=== PATIENT | male | born 1945 | race Caucasian/White ===

== ENCOUNTER → 2022-01-02 09:31 | Outpatient (CLI) | payer MEDICARE, SELFPAY ==
--- NOTE | ~2022-01-02 | XR_ITS ---
[id number] DATE: 01/02/2022 10:16 INDICATION: Pleural chest pain TECHNIQUE: PA chest. 3 views of right ribs. 3 views of left ribs. COMPARISON: None FINDINGS: Heart size normal. Aortic arch calcification. No hilar or mediastinal enlargement. No pulmonary infiltrate or consolidation, pleural effusion, pulmonary vascular congestion or pneumoth orax. No displaced rib fracture is noted on the left or right. IMPRESSION: No active cardiac pulmonary disease Aortic calcification No displaced rib fracture is detected Reviewed, dictated and finalized at [facility]. Reviewed, dictated and finalized at location A. RMATION RECEPTIONIST
== END ==
PROVIDERS: PCP Internal Medicine; Visit Provider Internal Medicine
DX: R07.81 Pleurodynia (principal); I70.0 Atherosclerosis of aorta
CPT/HCPCS: 71111

== ENCOUNTER 2022-03-17 17:02 | Emergency (ER) | payer MEDICARE, SELFPAY ==
[2022-03-17 17:09] VITALS: BP 155/96; PULSE 54; RESP 16; TEMP 36.6; O2SAT 99
--- NOTE | 2022-03-17 17:52 | ED.GENADULT ---
HPI - General Adult General Chief complaint: Wound/Laceration Stated complaint: Left thumb Source: patient Mode of arrival: ambulatory Limitations: no limitations History of Present Illness HPI narrative: Patient presents for evaluation of injury to left thumb. He indicates he was trimming bushes this morning around 11:00 AM when he sustained a laceration to the left thumb. He was holding a branch and accidentally cut himself in the process. He has noted continued oozing of blood from affected area. Due to duration of time he has noted bleeding, he came here for further evaluation. Fever, chills, nausea, vomiting, loss of range of motion, paresthesias, purulent discharge. He is right-hand dominant. He is not diabetic. He does not smoke. He is not up to date on tetanus. He takes 81mg ASA daily but no other blood thinners. No additional complaints or concerns. Related Data Home Medications Medication Instructions Recorded Confirmed ascorbate calcium (vitamin C) 500 500 mg PO DAILY 06/30/21 03/17/22 mg tablet cholecalciferol (vitamin D3) 25 25 mcg PO DAILY 06/30/21 03/17/22 mcg (1,000 unit) capsule omega-3 acid ethyl esters 1 gram 2 cap PO BID cap 06/30/21 03/17/22 capsule aspirin [Adult Low Dose Aspirin] 81 mg PO DAILY 03/17/22 03/17/22 Allergies Allergy/AdvReac Type Severity Reaction Status Date / Time No Known Allergies Allergy Verified 03/17/22 17:27 Review of Systems Review of Systems: CONSTITUTIONAL: Denies fever, chills, or sweats. EYES: Denies visual changes, redness, or discharge. ENT: Denies rhinorrhea, congestion, sore throat, or otalgia. CARDIOVASCULAR: Denies chest pain, palpitations, or edema. RESPIRATORY: Denies cough or dyspnea. GASTROINTESTINAL: Denies abdominal pain, nausea, vomiting, or diarrhea. GENITOURINARY: Denies dysuria or hematuria. SKIN: Reports laceration to the left thumb. Denies rash or itching. MUSCULOSKELETAL: Denies back pain, joint pain, or myalgia. NEUROLOGIC: Denies headache, numbness, dizziness, or weakness. PSYCHIATRIC: Denies anxiety or depression. [facility] Past Medical History Medical History (Updated 03/17/22 @ 17:53 by Russ Gay, INTERNET DATABASE SPECIALIST, ) Dyslipidemia Elevated TSH GERD (gastroesophageal reflux disease) Hypertension Hypovitaminosis D Surgical History Surgical History No pertinent past surgical history Family History Family History Father Heart disease Social History Social History Smoking status: Never smoker Second hand tobacco smoke exposure: Yes Alcohol intake: current Alcohol use details: 1 beer per month Substance use: never Substance use type: does not use Living arrangements: with family Gender identity (if verbalized by the patient): Male Sexual Orientation (if Verbalized by the Patient): Straight or Heterosexual Spiritual care concerns: No Exam Narrative: GENERAL: Well-appearing, well-nourished, and in no acute distress. HEAD: Normocephalic, atraumatic. EYES: PERRLA and EOMI. ENT: Nares clear, no rhinorrhea or epistaxis. Mucous membranes moist. Oropharynx without tonsillar hypertrophy exudate or other lesions. Bilateral TMs pearly rojo nonbulging NECK: Supple. No adenopathy or masses. No carotid bruits or JVD CHEST: Clear to auscultation. No respiratory distress. No wheezes rales or rhonchi HEART: Regular rate and rhythm. No murmur heard. Normal peripheral pulses. ABDOMEN: Soft, nontender, nondistended, normal active bowel sounds. EXTREMITIES: Normal range of motion. No edema. SKIN: Approximately 3cm jagged laceration through the distal phalanx of the left thumb. There is macerated surrounding tissue with an approximately 2mm puncture wound adjacent to the laceration. There is active sanguinous oozing from the laceration si
[2022-03-17] MEDS: TETANUS/DIPHTHERIA TOXOIDS ADSORB 0.5 ML VIAL (*BKC) IM (17:59)
--- NOTE | 2022-03-17 18:11 | PC.NURSE ---
180- MARKING MACHINE TENDER used surgicell overtop of the wound, and is having pt follow up with dr freeman on saturday am.
== END 2022-03-17 18:04 | disposition home or self-care (01) ==
PROVIDERS: Emergency Provider Nurse Practitioner; PCP Internal Medicine
DX: S61.012A Laceration without foreign body of left thumb without damage to nail, initial encounter (principal); W45.8XXA Other foreign body or object entering through skin, initial encounter; Z23 Encounter for immunization; E78.5 Hyperlipidemia, unspecified; K21.9 Gastro-esophageal reflux disease without esophagitis; I10 Essential (primary) hypertension; E55.9 Vitamin D deficiency, unspecified; Z79.82 Long term (current) use of aspirin
CPT/HCPCS: 12002; 90471; 90714; 99212; G0463

== ENCOUNTER → 2022-04-05 09:10 | Outpatient (REF) | payer MEDICARE, SELFPAY | LOC: ANHLAB 09:10 | PROVIDERS: PCP Internal Medicine; Visit Provider Nurse Practitioner | DX: C44.319 Basal cell carcinoma of skin of other parts of face (principal) | CPT/HCPCS: 88305 ==

== ENCOUNTER → 2022-06-11 07:35 | Outpatient (REF) | payer MEDICARE, SELFPAY | LOC: ANHLAB 07:35 | PROVIDERS: PCP Internal Medicine; Visit Provider Nurse Practitioner | DX: C44.319 Basal cell carcinoma of skin of other parts of face (principal) | CPT/HCPCS: 88305; 88331 ==

== ENCOUNTER 2023-02-13 07:38 | Outpatient (CLI) | payer MEDICARE, SELFPAY ==
[2023-02-13 08:45] LABS: Hematocrit 41.7 % (42.0-52.0); Hemoglobin 14.4 g/dL (14.0-18.0); Mean Corpuscular HGB Conc 34.5 g/dl (32-36); Mean Corpuscular Hemoglobin 30.9 pg (26-34); Mean Corpuscular Volume 89.5 fl (80-100); Mean Platelet Volume 10.1 fl (7.4-10.4); Platelet Count Result 148 k/mm3 (150-375); Red Blood Count 4.66 M/mm3 (4.6-6.20); Red Cell Distribution Width 12.8 % (11.5-14.5); White Blood Count 4.7 K/mm3 (4.5-10.0)
[2023-02-13 08:58] LABS: Hemoglobin A1C 5.2 % (<5.7)
[2023-02-13 09:27] LABS: Free T4 Free Thyroxine 1.23 ng/mL (0.78-2.19)
[2023-02-13 10:52] LABS: Alanine Aminotransferase 36 U/L (6-50); Albumin Level 4.5 g/dL (3.5-5.1); Alkaline Phosphatase 66 U/L (38-126); Anion Gap 5 mmol/L (8-16); Aspartate Amino Transferase 34 U/L (17-59); Bilirubin,Total 0.7 mg/dL (0.2-1.3); Blood Urea Nitrogen 21 mg/dL (9-20); Calcium 9.1 mg/dL (8.4-10.2); Carbon Dioxide 31 mmol/L (22-30); Chloride 106 mmol/L (98-107); Cholesterol 112 mg/dL (0-200); Estimated Glomerular Filt Rate > 60; Glucose 94 mg/dL (65-110); HDL Direct 36 mg/dL; Potassium 4.4 mmol/L (3.4-5.0); Sodium 142 mmol/L (137-145); Triglycerides 126 mg/dL (<150)
[2023-02-13 11:06] LABS: LDL Cholesterol Direct 51 mg/dL
[2023-02-13 11:22] LABS: Prostate Specific Antigen 0.7 ng/mL (< OR = 4.0)
[2023-02-17 00:08] LABS: Vitamin D 1,25 (OH)2 Total 46 pg/mL (18-72); Vitamin D2 1,25 (OH)2 <8 pg/mL; Vitamin D3 1,25 (OH)2 46 pg/mL
== END 2023-02-13 07:39 | disposition home or self-care (01) ==
LOC: ANHLAB 07:40
PROVIDERS: PCP Internal Medicine; Visit Provider Internal Medicine
DX: Z01.818 Encounter for other preprocedural examination (principal); I10 Essential (primary) hypertension; G47.9 Sleep disorder, unspecified; I25.10 Atherosclerotic heart disease of native coronary artery without angina pectoris; R79.89 Other specified abnormal findings of blood chemistry; E78.5 Hyperlipidemia, unspecified; E55.9 Vitamin D deficiency, unspecified; N40.0 Benign prostatic hyperplasia without lower urinary tract symptoms; Z12.5 Encounter for screening for malignant neoplasm of prostate
CPT/HCPCS: 36415; 80053; 80061; 82652; 83036; 84153; 84439; 84443; 85027; G0103

== ENCOUNTER 2023-04-11 10:26 | Outpatient (NON) | payer MEDICARE, SELFPAY | END 2023-04-11 10:27 | disposition home or self-care (01) | LOC: ANHLAB 04-12 10:29 | PROVIDERS: PCP Internal Medicine; Visit Provider Nurse Practitioner | DX: C44.329 Squamous cell carcinoma of skin of other parts of face (principal); D03.62 Melanoma in situ of left upper limb, including shoulder | CPT/HCPCS: 88305; 88342 ==

== ENCOUNTER 2023-04-29 11:14 | Outpatient (NON) | payer MEDICARE, SELFPAY | END 2023-04-29 11:15 | disposition home or self-care (01) | LOC: ANHLAB 11:16 | PROVIDERS: PCP Internal Medicine; Visit Provider Nurse Practitioner | DX: C44.320 Squamous cell carcinoma of skin of unspecified parts of face (principal) | CPT/HCPCS: 88305; 88331 ==

== ENCOUNTER 2023-04-29 11:29 | Outpatient (NON) | payer MEDICARE, SELFPAY | END 2023-04-29 11:30 | disposition home or self-care (01) | LOC: ANHLAB 05-01 11:29 | PROVIDERS: PCP Family Medicine; Visit Provider Nurse Practitioner Family | DX: C43.9 Malignant melanoma of skin, unspecified (principal) | CPT/HCPCS: 88305 ==

== ENCOUNTER 2023-08-06 09:00 | Outpatient (NON) | payer MEDICARE, SELFPAY | END 2023-08-06 09:01 | disposition home or self-care (01) | PROVIDERS: PCP Family Medicine; Visit Provider Nurse Practitioner | DX: C44.41 Basal cell carcinoma of skin of scalp and neck (principal) | CPT/HCPCS: 88305 ==

== ENCOUNTER 2023-08-16 07:12 | Outpatient (CLI) | payer MEDICARE, SELFPAY ==
[2023-08-16 07:43] LABS: Alanine Aminotransferase 32 U/L (6-50); Albumin Level 4.4 g/dL (3.5-5.1); Alkaline Phosphatase 64 U/L (38-126); Anion Gap 7 mmol/L (8-16); Aspartate Amino Transferase 34 U/L (17-59); Bilirubin,Total 0.7 mg/dL (0.2-1.3); Blood Urea Nitrogen 21 mg/dL (9-20); Calcium 9.2 mg/dL (8.4-10.2); Carbon Dioxide 29 mmol/L (22-30); Chloride 105 mmol/L (98-107); Cholesterol 104 mg/dL (0-200); Estimated Glomerular Filt Rate > 60; Glucose 100 mg/dL (65-110); HDL Direct 34 mg/dL; Potassium 3.9 mmol/L (3.4-5.0); Sodium 141 mmol/L (137-145); Triglycerides 122 mg/dL (<150)
[2023-08-16 07:54] LABS: LDL Cholesterol Direct 52 mg/dL
[2023-08-16 08:11] LABS: Vitamin D 25 Hydroxy 84.6 ng/mL
== END 2023-08-16 07:13 | disposition home or self-care (01) ==
PROVIDERS: PCP Family Medicine; Visit Provider Nurse Practitioner
DX: I10 Essential (primary) hypertension (principal); Z79.899 Other long term (current) drug therapy; E78.5 Hyperlipidemia, unspecified; E03.9 Hypothyroidism, unspecified; E55.9 Vitamin D deficiency, unspecified
CPT/HCPCS: 36415; 80053; 80061; 82306; 84443

== ENCOUNTER → 2023-08-30 09:26 | Outpatient (CLI) | payer MEDICARE, SELFPAY ==
--- NOTE | ~2023-08-30 | CT_ITS ---
CT of the Abdomen: Indication: Chronic pain Technique: 2.5 mm axial scans were obtained through the abdomen following intravenous administration of 100 cc of Omnipaque 350. Dose reduction technique was used on this scan by utilizing automated ex posure control and iterative reconstruction technique. The dose-length product (DLP) was 713.30 mGy-c m. Findings: Scans through the lung bases are unremarkable. Small hepatic cysts are present. The spleen, pancreas, gallbladder, adrenals and kidneys are within n ormal limits. There are mild atherosclerotic calcifications of the aorta. No lymphadenopathy. Visualized bowel loops are unremarkable. No ascites.. Impression: No significant abnormalities seen. Reviewed, dictated and finalized at location M. Impression: No significant abnormalities seen.
[2023-08-30 09:41] LABS: Estimated Glomerular Filt Rate > 60
== END ==
PROVIDERS: PCP Family Medicine; Visit Provider Nurse Practitioner Family
DX: R10.11 Right upper quadrant pain (principal)
CPT/HCPCS: 74160; Q9967

== ENCOUNTER 2023-09-09 13:48 | Outpatient (NON) | payer MEDICARE, SELFPAY | END 2023-09-09 13:49 | disposition home or self-care (01) | LOC: ANHLAB 13:49 | PROVIDERS: PCP Family Medicine; Visit Provider Nurse Practitioner | DX: C44.41 Basal cell carcinoma of skin of scalp and neck (principal) | CPT/HCPCS: 88305; 88331 ==

== ENCOUNTER 2023-11-12 11:49 | Outpatient (NON) | payer MEDICARE, SELFPAY | END 2023-11-12 11:50 | disposition home or self-care (01) | LOC: ANHLAB 11-13 11:51 | PROVIDERS: PCP Family Medicine; Visit Provider Nurse Practitioner | DX: C44.41 Basal cell carcinoma of skin of scalp and neck (principal) | CPT/HCPCS: 88305 ==

== ENCOUNTER 2023-12-09 14:18 | Outpatient (NON) | payer MEDICARE, SELFPAY | END 2023-12-09 14:19 | disposition home or self-care (01) | LOC: ANHLAB 14:19 | PROVIDERS: PCP Family Medicine; Visit Provider Nurse Practitioner | DX: C44.41 Basal cell carcinoma of skin of scalp and neck (principal) | CPT/HCPCS: 88305; 88331 ==

== ENCOUNTER 2024-02-20 07:10 | Outpatient (CLI) | payer MEDICARE, SELFPAY ==
[2024-02-20 07:35] LABS: Basophils Percent Auto 0.6 % (0.2-1.2); Eosinophils Absolute Auto 0.3 K/mm3 (0-0.3); Eosinophils Percent Auto 4.7 % (0-4.4); Hematocrit 43.3 % (42.0-52.0); Hemoglobin 15.1 g/dL (14.0-18.0); Immature Granulocyte Absolute 0.01 K/mm3 (0.00-0.031); Immature Granulocyte Percent A 0.2 % (0-0.5); Lymphocytes Absolute Auto 1.64 K/mm3 (0.9-3.2); Lymphocytes Percent Auto 30.9 % (18.3-44.2); Mean Corpuscular HGB Conc 34.9 g/dl (32-36); Mean Corpuscular Hemoglobin 30.8 pg (26-34); Mean Corpuscular Volume 88.4 fl (80-100); Mean Platelet Volume 9.5 fl (7.4-10.4); Monocytes Absolute Auto 0.5 K/mm3 (0.1-0.6); Monocytes Percent Auto 9.8 % (2.6-8.5); Neutrophils Absolute Auto 2.9 K/mm3 (1.3-6.7); Neutrophils Percent Auto 53.8 % (45.5-73.1); Platelet Count Result 149 k/mm3 (150-375); Red Cell Distribution Width 12.9 % (11.5-14.5); White Blood Count 5.3 K/mm3 (4.5-10.0)
[2024-02-20 07:50] LABS: Alanine Aminotransferase 33 U/L (6-50); Albumin Level 4.5 g/dL (3.5-5.1); Alkaline Phosphatase 65 U/L (38-126); Anion Gap 6 mmol/L (4-12); Aspartate Amino Transferase 34 U/L (17-59); Bilirubin,Total 0.8 mg/dL (0.2-1.3); Blood Urea Nitrogen 20 mg/dL (9-20); Calcium 9.6 mg/dL (8.4-10.2); Carbon Dioxide 29 mmol/L (22-30); Chloride 105 mmol/L (98-107); Cholesterol 111 mg/dL (0-200); Estimated Glomerular Filt Rate > 60; Glucose 108 mg/dL (65-110); HDL Direct 34 mg/dL; Potassium 3.9 mmol/L (3.4-5.0); Sodium 140 mmol/L (137-145); Triglycerides 145 mg/dL (<150); Uric Acid 4.3 mg/dL (3.5-8.5)
[2024-02-20 08:01] LABS: LDL Cholesterol Direct 57 mg/dL
[2024-02-20 11:15] LABS: Free T4 Free Thyroxine 1.48 ng/mL (0.78-2.19); Vitamin D 25 Hydroxy 84.7 ng/mL
== END 2024-02-20 07:11 | disposition home or self-care (01) ==
PROVIDERS: PCP Family Medicine; Visit Provider Nurse Practitioner Family
DX: M10.9 Gout, unspecified (principal); Z79.899 Other long term (current) drug therapy; E78.5 Hyperlipidemia, unspecified; I10 Essential (primary) hypertension; I25.10 Atherosclerotic heart disease of native coronary artery without angina pectoris; E03.9 Hypothyroidism, unspecified; E55.9 Vitamin D deficiency, unspecified; Z13.0 Encounter for screening for diseases of the blood and blood-forming organs and certain disorders involving the immune mechanism
CPT/HCPCS: 36415; 80053; 80061; 82306; 84439; 84443; 84550; 85025

== ENCOUNTER 2024-03-11 10:05 | Outpatient (CLI) | payer MEDICARE, SELFPAY ==
[2024-03-11 11:03] LABS: Anion Gap 7 mmol/L (4-12); Blood Urea Nitrogen 20 mg/dL (9-20); Calcium 9.7 mg/dL (8.4-10.2); Carbon Dioxide 26 mmol/L (22-30); Chloride 107 mmol/L (98-107); Estimated Glomerular Filt Rate > 60; Glucose 117 mg/dL (65-110); Potassium 4.1 mmol/L (3.4-5.0); Sodium 140 mmol/L (137-145)
== END 2024-03-11 10:06 | disposition home or self-care (01) ==
PROVIDERS: PCP Family Medicine; Visit Provider Internal Medicine Cardiovascular Disease
DX: I10 Essential (primary) hypertension (principal)
CPT/HCPCS: 36415; 80048

== ENCOUNTER 2024-08-28 07:04 | Outpatient (CLI) | payer MEDICARE, SELFPAY ==
[2024-08-28 07:55] LABS: Hemoglobin 14.7 g/dL (14.0-18.0); Mean Corpuscular Hemoglobin 30.7 pg (26-34); Mean Corpuscular Volume 87.7 fl (80-100); Mean Platelet Volume 9.7 fl (7.4-10.4); Platelet Count Result 148 k/mm3 (150-375); Red Blood Count 4.79 M/mm3 (4.6-6.20); Red Cell Distribution Width 13.1 % (11.5-14.5); White Blood Count 4.6 K/mm3 (4.5-10.0)
[2024-08-28 08:07] LABS: Alanine Aminotransferase 32 U/L (6-50); Albumin Level 4.5 g/dL (3.5-5.1); Alkaline Phosphatase 59 U/L (38-126); Anion Gap 8 mmol/L (4-12); Aspartate Amino Transferase 36 U/L (17-59); Blood Urea Nitrogen 23 mg/dL (9-20); Calcium 9.4 mg/dL (8.4-10.2); Carbon Dioxide 26 mmol/L (22-30); Chloride 106 mmol/L (98-107); Cholesterol 106 mg/dL (0-200); Estimated Glomerular Filt Rate > 60; Glucose 98 mg/dL (65-110); HDL Direct 33 mg/dL; Potassium 4.1 mmol/L (3.4-5.0); Sodium 140 mmol/L (137-145); Triglycerides 121 mg/dL (<150); Uric Acid 4.7 mg/dL (3.5-8.5)
[2024-08-28 08:18] LABS: LDL Cholesterol Direct 44 mg/dL
== END 2024-08-28 07:05 | disposition home or self-care (01) ==
LOC: ANHLAB 07:07
PROVIDERS: PCP Nurse Practitioner Family; Visit Provider Nurse Practitioner Family
DX: M1A.9XX0 Chronic gout, unspecified, without tophus (tophi) (principal); C44.319 Basal cell carcinoma of skin of other parts of face; E55.9 Vitamin D deficiency, unspecified; E78.5 Hyperlipidemia, unspecified; G47.9 Sleep disorder, unspecified; I10 Essential (primary) hypertension; I25.10 Atherosclerotic heart disease of native coronary artery without angina pectoris; K21.9 Gastro-esophageal reflux disease without esophagitis; R10.11 Right upper quadrant pain; R79.89 Other specified abnormal findings of blood chemistry; E03.9 Hypothyroidism, unspecified
CPT/HCPCS: 36415; 80053; 80061; 84443; 84550; 85027

== ENCOUNTER 2025-03-02 07:11 | Outpatient (CLI) | payer MEDICARE, SELFPAY ==
--- OUTSIDE RECORDS SUMMARY | 2025-03-02 07:15 | XMS_ITS | Continuity of Care Document ---
Author Organization [facility] Address [address] [place] [address] Phone Care Team Providers Care Hide Sorter Name Role Phone Dany Chandler MD Unavailable Unavailable Procedures Procedure Date COLONOSCOPY AND BIOPSY TISSUE EXAM BY PATHOLOGIST Advance Directives Directive Yes / No Effective Date File Name No Information Encounters Encounter Description Practice Location Reason(s) For Visit Diagnoses Date Provider Providers Copied on Encounter [facility] [address], [place], [place], [id number], tel:[phone] [facility] No Information Geraldine Saenz. [address] [place] [address], [id number], . tel:[phone] [facility] [address], [place], [place], [address], tel:[phone] [facility] No Information Geraldine Saenz. [address] [place] [address], [id number], . tel:[phone] Referring Provider: Marty Ash, [address] [facility] [employer] [facility] [address], [address]. tel:[phone] [facility] [address], [place], [place], [id number], tel:[phone] [facility] No Information Joaquin Santiago. [address] [place] [address], [address], [place]. tel:[phone] Referring Provider: Marty Ash, [address] [facility], [place], [address]. tel:[phone] Family History Family Member Type Diagnosis Age At Onset No Information Payers Payer name Insurance type Covered constitution party ID Authorlily crews(s) MEDICARE MB [id number] AARP MDCR SUPPLEMENT ONLY CI [id number] Social History Type Description Quantity Date Captured [...]
--- OUTSIDE RECORDS SUMMARY | 2025-03-02 07:15 | XMS_ITS | Data Portability ---
Author Organization [place] [facility] [employer], Main Office Address [address] [place] [address] Assessment Encounter Date Assessment Date Assessment LastModified by Organization Details LastModified Time 10/01/2024 10/01/2024 The patient has impingement due to what appears to be subacromial spurring and AC joint arthrosis resulting in likely partial-thicknes s tearing of the rotator cuff tendon and tendinitis. We talked about treatment options today in detail I have advised him to avoid heavy repetitive overhead type maneuvers and when he walks his dogs he may try to use the opposite hand to avoid sudden jerking motions on his right shoulder. He has had no treatment today we are going to start with a course of physical therapy I offered him formal therapy he declined we will give him home exercise program sheets to work on on his own at home. He did want to proceed with a prescription for naproxen 500 mg b.i.d. with food for 6 weeks we will also try a shot of cortisone. At his request under sterile conditions I injected the patient's right shoulder subacromial space in the office with 4 cc 0.5% bupivacaine and 20 mg of Kenalog. The patient tolerated the procedure well. We will see how he does in 6 weeks if his symptoms are continuing or worsening we may consider an MRI scan to assess the integrity of the rotator cuff tendon. The patient voiced understanding and agreed with the above plan will call for any further problems difficulties or questions. Not available 10/01/2024 11:29:27 11/12/2024 11/12/2024 The patient has likely some fraying and wear in the rotator cuff tendon due to impingement and subacromial spurring. Today after treatment he comes in today for recheck he states he is pain-free he is doing his home exercise program 3 days a week at the gym we talked about continuing that he is going to proceed. If his pain comes back or he starts to develop weakness he will call for now he is very comfortable and pleased with the previous treatment results. He voiced understanding and agreed with the above plan he will continue with naproxen 500 mg b.i.d. with food as necessary if he feels good he can back off of it. He will call for any further problems difficulties or questions. Not available 11/12/2024 11:07:19 Plan of Treatment Reminders Order Date Submit Date Provider Last Modified By Organization Details Last Modified Time Details Appointments None recorded. Lab None recorded. Referral None recorded. Procedures injection/a spiration joint/bursa (PROC) 2023 [email or web address] In-Office Order, Internal Use Only DO Not Attach Compendium DO Not Attach Compendium, Do Not Delete/merge, [id number] 11:12:57 Surgeries None recorded. Imaging XR, shoulder 2023 [email or web address] [facility] [place], [facility], [place], [address], 4 11:30:53 Medication Orders bupivacaine HCl 0.5 % (5 mg/mL) injection solution 2023 [email or web address] [id number], [address] [place], [place], [id number], 4 11:16:50 Kenalog 10 mg/mL suspension for injection 2023 [email or web address] [facility] #[id number], [address] [place], [id number], 4 11:16:50 naproxen 500 mg tablet 2023 [email or web address] [facility] #[id number], [address], [place], [place], [id number], 4 11:16:50 Patient TargetsNo targets recorded. Patient InstructionsNo instructions recorded. Reason for Referral None Reported. Results Created Date Observation Date Name Description Value Unit Range Abnormal Flag Note LastModifiedBy Organization Detail LastModifiedTime 10/01/20 24 XR, shoul indira No observ ation record ed. [email or web address] [facility] [place] [address], [place], [address], 10/01/2024 11:30:51 Result Notes None recorded. 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 Procedures Surgical History None recorded. Imaging Results Imaging Date Name Status LastModified by Organiz ation Details LastModified Time 10/01/2024 XR, shoulder completed [email or web address] [facility] [place] [address], [place], [address], 10/01/2024 11:30:51 Procedure Notes None recorded. Medical Equipment None Reported. Allergies No known drug allergies Medications Name Sig Start Date Stop Date Status Note LastModified by Organization Details LastModified Time quetiapine 25 mg tablet TAKE 1 TABLET BY MOUTH DAILY active Not Available Not Available No t Available levothyroxi ne 137 mcg tablet TAKE 1 TABLET BY MOUTH DAILY active Not Available Not Available No t Available carvedilol 6.25 mg tablet TAKE 1 TABLET BY MOUTH EVERY 12 HOURS . TAKE WITH SNACK / FOOD active Not Available Not Available No t Available carvedilol 12.5 mg tablet TAKE 1 TABLET BY MOUTH EVERY 12 HOURS WITH SNACK OR FOOD active Not Available Not Available No t Available benzonatate 200 mg capsule TAKE 1 CAPSULE BY MOUTH THREE TIMES DAILY NEEDED FOR COUGH 10/01 completed Not Available Not Available Not Available bupivacaine HCl 0.5 % (5 mg/mL) injection solution Take 20 mg by injection route. 2023 active Not Available Not Available Not Avai lable prednisone 20 mg tablet TAKE 2 TABLETS BY MOUTH DAILY WITH FOOD FOR 5 DAYS 10/01 completed Not Available Not Available Not Available omeprazole 40 mg capsule,del ayed release TAKE 1 CAPSULE BY MOUTH DAILY active Not Available Not Available No t Available potassium chloride ER 20 mEq tablet,exte nded release(par t/cryst) TAKE 1 TABLET BY MOUTH TWICE DAILY active Not Available Not Available No t Available Kenalog 10 mg/mL suspension for injection Take 20 mg by injection route. [address] [facility]: [phone]- [phone] Not Available Not Available Not Available amlodipine 10 mg tablet TAKE 1 TABLET BY MOUTH DAILY active Not Available Not Available No t Available cephalexin 500 mg capsule TAKE 1 CAPSULE BY MOUTH THREE TIMES DAILY 10/01 completed Not Available Not Available Not Available allopurinol 300 mg tablet TAKE 1 TABLET BY MOUTH DAILY active Not Available Not Available No t Available losartan 100 mg tablet TAKE 1 TABLET BY MOUTH DAILY active Not Available Not Available No t Available doxycycline hyclate 100 mg tablet TAKE 1 TABLET BY MOUTH TWICE DAILY FOR 10 DAYS 10/01 completed Not Available Not Available Not Available naproxen 500 mg tablet TAKE 1 TABLET BY MOUTH TWICE DAILY active Not Available Not Available No t Available rosuvastati n 20 mg tablet TAKE 1 TABLET BY MOUTH DAILY active Not Available Not Available No t Available omega-3 acid ethyl esters 1 gram capsule TAKE 2 CAPSULES BY MOUTH TWICE DAILY active Not Available Not Available No t Available Vitals Date Recorded Body height Body mass index (BMI) Body weight Provider Name and Address Organization Details Last Updated DateTime 10/01/2024 175.26 cm 31 kg/m2 63593.4 g GAVIN Pressley [employer] 10/01/2024 10:40:06 Date Recorded Body height Body mass index (BMI) Body weight Provider Name and Address Organization Details Last Updated DateTime 11/12/2024 175.26 cm 30.3 kg/m2 75908.44 g GAVIN Pressley [employer] 11/12/2024 10:50:36 Social History Question Answer Notes LastModified by Organizat ion Details LastModified Time Tobacco Smoking Status Never Smoker GAVIN Pressley [place] [facility] 10/01/2024 10:41:20 What Is Your Level Of Alcohol Consumption? None Information not available 10/01/2024 Sex: Unknown Functional Status None recorded. Mental Status None recorded. Family History Relationship Description Onset Age of this Age Resolved Age Notes LastModified by Organization Details LastModified Time Mother Hypertensive disorder Not available 2023 10:41:07 Medical History Condition Response HEART DISEASE/HEART PROBLEMS Y SKIN PROBLEMS Y GOUT Y Past Encounters Encounter ID Performer Location Encounter Start Date Encounter Closed Date Diagnosis/Indication Diagnosis SNOMED-CT Code Diagnosis ICD10 Code Diagnosis Note [id number] PATRICK Allen [facility] [place] [address] [place] [address] 10/01/2024 10:24:43 10/01/2024 11:18:25 Pain of right shoulder joint 1948039806 7125806 M25.511 Osteoarthr itis of right acromioclavicular joint 0116132651 095577 M19.011 Impingemen t syndrome of right shoulder region 9358543091 88203 M75.41 Non-trauma tic partial tear of right rotator cuff 3435565867 849704 M75.440 [id number] PATRICK Allen [facility] [place] [address] [place] [address] 11/12/2024 10:48:11 11/12/2024 11:08:28 Non-traumatic partial tear of right rotator cuff 3031018452 837353 M75.111 Osteoarthr itis of right acromioclavicular joint 4947222258 680345 M19.011 Pain of ri ght shoulder joint 4314513191 6073399 M25.511 Impingemen t syndrome of right shoulder region 9806855107 79621 M75.41 Health Concerns Section Related Observation LastModified by Organization Detai ls LastModified Time None Recorded Concern Status LastModified by Organization Details LastModified Time None Recorded Advance Directives Directive None Recorded Payers Encounter Date Sequence Insurance Name Policy Number Policy Landeros Covered Member ID Landeros Member ID Guarantor Name 10/01/2024 1 [place] Pedrito Martin Godfrey [id number] Pedrito Mario Godfrey 10/01/2024 2 [employer]IONS (MEDICARE SUPPLEMENT) Pedrito Mckeonen [id number] Pedrito Martin Godfrey 11/12/2024 1 [place] Pedrito Martin Godfrey [id number] Pedrito Mario Godfrey 11/12/2024 2 [employer] OPTIONS (MEDICARE SUPPLEMENT) Pedrito Donahue [id number] Pedrito Donahue Notes Date Note Type Note Provider Name and Address Organization Details Recorded Time 10/01/2024 text/html The patient is a 78-year-old male who presents with a chronic history of some shoulder issues with his right shoulder. 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 Over the years he has had some twinges of pain but recently more consistent and more intense pain. Today states the pain is about a 5 on a scale of 1-10. Notices it mostly when he walks his 2 dogs he will put them on a leash and use his right upper extremity to control the dogs which aggravates his right shoulder. He has pain that radiates into the upper arm particularly if he is do anything heavy or repetitive sudden jerking on the leashes from his dogs does aggravate his right shoulder as well. He states he does not notice any weakness in the shoulder but does note he has limited range of motion particularly trying to reach behind his back he does have full overhead motion full external rotation internal rotation is somewhat limited. He has had no specific trauma or injury to the shoulder recently or previously. Occasionally he will take some Aleve [id number] he states he also does some light weightlifting to try to keep in shape and tries to exercise his shoulder. However his symptoms continue despite conservative measures. He comes in today for initial evaluation treatment of what sounds like rotator cuff tendinitis and possibly partial-thickness tearing. A new past medical history sheet was reviewed and signed on the intake sheet of today's date drug allergies current medications family social history previous surgical history 10 point review of systems was reviewed and discussed in detail today with the patient. PATRICK Allen [address], [address], [place], [address], Di[facility]ize 10/01/2024 11:31:57 11/12/2024 text/html Patient returns for recheck of his right shoulder. He was having some tendinitis and possibly has some partial-thickness fraying or tearing of the rotator cuff tendon degenerative in nature. He does have some subacromial spurring and AC joint arthrosis likely resulting in impingement and wear in the tendon. The patient was treated with a shot of cortisone and naproxen 500 mg b.i.d. and he was given a home exercise program. He has been working on that 3 times a week he states doing light weights and maintaining his motion. He comes in today stating that he now has no pain. He does note some clicking through the arc of motion of the shoulder but it really does not bother him. Occasionally he does anything too heavy or extreme with motion he will get some twinges of pain but overall is feeling very good. He comes in today to talk about further treatment options for the future if necessary and for recheck. PATRICK Allen [address], [place], [address], Diarize 11/12/2024 11:07:41
[2025-03-02 08:29] LABS: Hematocrit 42.9 % (42.0-52.0); Hemoglobin 14.2 g/dL (14.0-18.0); Mean Corpuscular HGB Conc 33.1 g/dl (32-36); Mean Corpuscular Hemoglobin 30.1 pg (26-34); Mean Corpuscular Volume 90.9 fl (80-100); Mean Platelet Volume 9.8 fl (7.4-10.4); Platelet Count Result 139 k/mm3 (150-375); Red Blood Count 4.72 M/mm3 (4.6-6.20); Red Cell Distribution Width 13.1 % (11.5-14.5)
[2025-03-02 08:31] LABS: Alanine Aminotransferase 36 U/L (6-50); Albumin Level 4.5 g/dL (3.5-5.1); Alkaline Phosphatase 68 U/L (38-126); Anion Gap 8 mmol/L (4-12); Aspartate Amino Transferase 34 U/L (17-59); Bilirubin,Total 0.9 mg/dL (0.2-1.3); Blood Urea Nitrogen 19 mg/dL (9-20); Calcium 9.4 mg/dL (8.4-10.2); Carbon Dioxide 29 mmol/L (22-30); Chloride 105 mmol/L (98-107); Cholesterol 102 mg/dL (0-200); Estimated Glomerular Filt Rate > 60; Glucose 100 mg/dL (65-110); HDL Direct 35 mg/dL; Sodium 142 mmol/L (137-145); Triglycerides 121 mg/dL (<150)
[2025-03-02 08:42] LABS: LDL Cholesterol Direct 39 mg/dL
[2025-03-02 09:54] LABS: Vitamin D 25 Hydroxy 63.5 ng/mL
== END 2025-03-02 07:12 | disposition home or self-care (01) ==
PROVIDERS: PCP Nurse Practitioner Family; Visit Provider Nurse Practitioner Family
DX: E03.9 Hypothyroidism, unspecified (principal); N40.0 Benign prostatic hyperplasia without lower urinary tract symptoms; M10.9 Gout, unspecified; I25.10 Atherosclerotic heart disease of native coronary artery without angina pectoris; D49.2 Neoplasm of unspecified behavior of bone, soft tissue, and skin; K21.9 Gastro-esophageal reflux disease without esophagitis; I10 Essential (primary) hypertension; E78.5 Hyperlipidemia, unspecified; E55.9 Vitamin D deficiency, unspecified; R07.81 Pleurodynia; Z68.31 Body mass index [BMI] 31.0-31.9, adult; G47.9 Sleep disorder, unspecified
CPT/HCPCS: 36415; 80053; 80061; 82306; 84443; 85027

== ENCOUNTER 2025-08-30 07:23 | Emergency (ER) | payer MEDICARE, SELFPAY ==
--- OUTSIDE RECORDS SUMMARY | 2020-08-31 07:26 | XMS_ITS | Continuity of Care Document ---
Author Organization [facility] Address [address] [place] [address] Phone Care Team Providers Care Tandem Mill Operator Name Role Phone Dany Chandler MD Unavailable Unavailable Procedures Procedure Date COLONOSCOPY AND BIOPSY TISSUE EXAM BY PATHOLOGIST Advance Directives Directive Yes / No Effective Date File Name No Information Encounters Encounter Description Practice Location Reason(s) For Visit Diagnoses Date Provider Providers Copied on Encounter [facility], [address], [place], [place], [id number], tel:[phone] [facility] No Information Geraldine Saenz. [address] [place] [address], [id number], . tel:[phone] [facility], [address], [place], [place], [id number], tel:[phone] [facility] No Information Geraldine Saenz. [address] [place] [address], [id number], . tel:[phone] Referring Provider: Marty Ash, [address] [facility] [employer] [facility] [address], [place], [address]. tel:[phone] [facility], [address], [place], [place], [id number], tel:[phone] [facility] No Information Joaquin Santiago. [address] [place] [address], [address], [place]. tel:[phone] Referring Provider: Marty Ash, [address] [facility], [place], [address]. tel:[phone] Family History Family Member Type Diagnosis Age At Onset No Information Payers Payer name Insurance type Covered republican ID Authorlily crews(s) MEDICARE MB [id number] AARP MDCR SUPPLEMENT ONLY CI [id number] Social History Type Description Quantity Date Captured Comments Sex Male Smoking Status No Information Chief Complaint And Reason For Visit No Information Reason For Referral Reason For Referral No Information History Of Present Illness Encounter Date Complaint History Of Prese nt Illness No Information Functional Status Date Functional Assessmen t No Information Instructions Date Instruction Additional Infor mation No Information Assessments Type Assessment Date No Information Patient Care Teams Name Effective Dates (start - stop) Status Members No Information
[2025-08-30 07:25] VITALS: PULSE 77; RESP 17; TEMP 37.1; O2SAT 99
--- NOTE | 2025-08-30 09:52 | ED.MALEGU ---
HPI - Male Genitourinary General Chief complaint: Urogenital-Male Stated complaint: swelling to groin Time Seen by Provider: 08/30/25 08:09 History of Present Illness HPI Narrative: Patient is a 79-year-old male who presents ER with discomfort to the scrotal area near the perineum. He has developed pain in the area over last 4 days. He has developed swelling of his scrotum and is causing him to develop a buried penis. Has no drainage the area. No pain with defecation. No fevers or chills or sweats. Related Data Home Medications ?Medication ?Instructions ?Recorded ?Confirmed ?Last Taken ?Type ascorbate calcium (vitamin C) 500 500 mg PO DAILY 06/30/21 03/09/25 Unknown History mg tablet cholecalciferol (vitamin D3) 25 25 mcg PO DAILY 06/30/21 03/09/25 Unknown History mcg (1,000 unit) capsule omega-3 acid ethyl esters 1 gram 2 cap PO BID 06/30/21 03/09/25 Unknown History capsule (Lovaza) aspirin 81 mg tablet 81 mg PO DAILY 03/17/22 03/09/25 Unknown History Allergies Allergy/AdvReac Type Severity Reaction Status Date / Time No Known Allergies Allergy Verified 08/30/25 08:16 Review of Systems Constitutional: Constitutional: Reports no additional constitutional complaints Genitourinary: Genitourinary: Reports no additional male genitourinary complaints Musculoskeletal: Musculoskeletal: Reports no additional musculoskeletal complaints Integumentary/Breasts: Skin/Breast: Reports system reviewed and no additional complaints, except as docu [facility] Past Medical History Medical History (Updated 08/30/25 @ 09:55 by Dario Box MD) BMI 31.0-31.9,adult CAD (coronary artery disease) Basal cell carcinoma of left cheek Hypovitaminosis D Elevated TSH Dyslipidemia Hypertension GERD (gastroesophageal reflux disease) Surgical History Surgical History No pertinent past surgical history Family History Family History Father Heart disease Social History Social History Smoking status: Never smoker Second hand tobacco smoke exposure: Yes Alcohol intake: current Alcohol use details: 1 beer per month Substance use: never Substance use type: does not use Lack of Transportation: No Lack of Food: Never True Current Housing: I Have Housing Concerned About Future Housing: No Difficulty Paying Gas/Electric Bills: No Difficulty Paying for Meds: No Currently Unemployed: No Education: Associate Degree Difficulty w/ Childcare or Family Care: No Living arrangements: with family Gender identity (if verbalized by the patient): Male Sexual Orientation (if Verbalized by the Patient): Straight or Heterosexual Spiritual care concerns: No Exam Narrative: GENERAL: Well-appearing, well-nourished, and in no acute distress. HEAD: Normocephalic, atraumatic. ENT: Mucous membranes moist. : There is an abscess at the base of the scrotum home nearly at the perineum with induration moving towards the main aspect of the scrotum. Moderate edema of the scrotal sac. EXTREMITIES: Normal range of motion. No edema. SKIN: Warm, dry, no rash. NEURO: No focal deficits. Alert and oriented x3. PSYCH: Normal mood and affect. Course Course Emergency Course: Discussed case with Urology. They will follow up in clinic. Will start on doxycycline. Discussed need for removal packing in 2 days. Vital Signs Vital signs: Vital Signs Temperature 98.7 F 08/30/25 07:25 Pulse Rate 77 08/30/25 07:25 Respiratory Rate 17 08/30/25 07:25 Pulse Oximetry 99 08/30/25 07:25 Oxygen Delivery Room Air 08/30/25 07:25 Temperature 98.7 F 08/30/25 07:25 Pulse Rate 77 08/30/25 07:25 Respiratory Rate 17 08/30/25 07:25 Pulse Oximetry 99 08/30/25 07:25 Oxygen Delivery Room Air 08/30/25 07:25 Procedures Abscess I/D scrotum: Date of Incision: 08/30/25 Time of Incision: 09:50 Local Anesthetic: lidocaine 1% and with epi Amount of anesthesia used (mL): 5 Technique: incised with #11 blade Packing used?: iodoform I&D Results: Pus Discharge Plan Discharge Clinical Impression: Abscess of scrotum Patient Disposition: Home Condition: Stable Instructions: Antibiotic Form, Incision and Drainage (ED) Additional Instructions: You have an abscess on your scrotum that required drainage and packing. Remove the packing in 2 days. Follow-up with Urology. Take the full course of antibiotics as prescribed. Patient Language: Martiniquais Prescriptions: New doxycycline hyclate 100 mg capsule 100 mg PO BID Qty: 20 0RF No Action Adult Low Dose Aspirin 81 mg Tablet 81 mg PO DAILY rosuvastatin 20 mg tablet 20 mg PO DAILY Qty: 90 0RF carvedilol 12.5 mg tablet 12.5 mg PO Q12H Qty: 90 0RF Rx Instructions: must administer with a meal/food amlodipine 10 mg tablet 10 mg PO DAILY Qty: 90 0RF potassium chloride 20 mEq tablet extended release 20 meq PO DAILY Qty: 90 0RF multivitamin [Daily Multi-Vitamin] Tablet 1 tablet PO DAILY Qty: 90 0RF diclofenac sodium [Voltaren Arthritis Pain] 1 % gel 4 g topical QID Qty: 100 0RF ascorbate calcium (vitamin C) 500 mg tablet 500 mg PO DAILY cholecalciferol (vitamin D3) 25 mcg (1,000 unit) capsule 25 mcg PO DAILY omega-3 acid ethyl esters [Lovaza] 1 gram capsule 2 cap PO BID omeprazole 40 mg capsule,delayed release(DR/EC) See Rx Instructions .ROUTE .COMPLEX Qty: 90 1RF Dose Instruction: TAKE 1 CAPSULE BY MOUTH DAILY Rx Instructions: TAKE 1 CAPSULE BY MOUTH DAILY allopurinol 300 mg tablet See Rx Instructions .ROUTE .COMPLEX Qty: 90 0RF Dose Instruction: TAKE 1 TABLET BY MOUTH DAILY Rx Instructions: TAKE 1 TABLET BY MOUTH DAILY quetiapine 25 mg tablet See Rx Instructions .ROUTE .COMPLEX Qty: 90 0RF Dose Instruction: TAKE 1 TABLET BY MOUTH DAILY Rx Instructions: TAKE 1 TABLET BY MOUTH DAILY levothyroxine 137 mcg tablet See Rx Instructions .ROUTE .COMPLEX Qty: 90 1RF Dose Instruction: TAKE 1 TABLET BY MOUTH DAILY Rx Instructions: TAKE 1 TABLET BY MOUTH DAILY losartan 100 mg tablet See Rx Instructions .ROUTE .COMPLEX Qty: 90 1RF Dose Instruction: TAKE 1 TABLET BY MOUTH DAILY Rx Instructions: TAKE 1 TABLET BY MOUTH DAILY Follow-up/Referrals: Raeann Mcgill APRN [Primary Care Provider, Internal Medicine] Cortes Alexandra MD [Physician, Urology] - 3 Days
== END 2025-08-30 10:57 | disposition home or self-care (01) ==
PROVIDERS: Emergency Provider Emergency Medicine; PCP Nurse Practitioner Family
DX: N49.2 Inflammatory disorders of scrotum (principal); I25.10 Atherosclerotic heart disease of native coronary artery without angina pectoris; I10 Essential (primary) hypertension; E78.5 Hyperlipidemia, unspecified; K21.9 Gastro-esophageal reflux disease without esophagitis; Z85.828 Personal history of other malignant neoplasm of skin; Z77.22 Contact with and (suspected) exposure to environmental tobacco smoke (acute) (chronic); Z79.899 Other long term (current) drug therapy
CPT/HCPCS: 10061; 55100; 99283

== ENCOUNTER 2025-09-08 07:12 | Outpatient (CLI) | payer MEDICARE, SELFPAY ==
--- OUTSIDE RECORDS SUMMARY | 2020-08-31 07:26 | XMS_ITS | Continuity of Care Document ---
Author Organization [facility] Address [address] [place] [address] Phone Care Team Providers Care Grain Scooper Name Role Phone Dany Chandler MD Unavailable Unavailable Procedures Procedure Date COLONOSCOPY AND BIOPSY TISSUE EXAM BY PATHOLOGIST Advance Directives Directive Yes / No Effective Date File Name No Information Encounters Encounter Description Practice Location Reason(s) For Visit Diagnoses Date Provider Providers Copied on Encounter [facility], [address], [place], [place], [id number], tel:[phone] [facility] No Information Geraldine Saenz. [address] [place] [address], [id number], . tel:[phone] [facility], [address], [place], [place], [id number], tel:[phone] [facility] No Information Geraldine Saenz. [address] [place] [address], [id number], . tel:[phone] Referring Provider: Marty Ash, [address] [facility] [address], [place], [address]. tel:[phone] [facility], [address], [place], [place], [address], tel:[phone] [facility] No Information Joaquin Santiago. [address] [place] [address], [address], [place]. tel:[phone] Referring Provider: Marty Ash, [address] [facility] [place] [facility], [place], [address]. tel:[phone] Family History Family Member Type Diagnosis Age At Onset No Information Payers Payer name Insurance type Covered alliance party ID Authorlily crews(s) MEDICARE MB [id number] AARP MDCR SUPPLEMENT ONLY CI [id number] Social History Type Description Quantity Date Captured [...]
[2025-09-08 08:51] LABS: Hematocrit 40.0 % (42.0-52.0); Hemoglobin 13.9 g/dL (14.0-18.0); Mean Corpuscular HGB Conc 34.8 g/dl (32-36); Mean Corpuscular Hemoglobin 30.7 pg (26-34); Mean Corpuscular Volume 88.3 fl (80-100); Platelet Count Result 177 k/mm3 (150-375); Red Blood Count 4.53 M/mm3 (4.6-6.20); White Blood Count 4.6 K/mm3 (4.5-10.0)
[2025-09-08 09:19] LABS: Alanine Aminotransferase 24 U/L (6-50); Albumin Level 4.2 g/dL (3.5-5.1); Alkaline Phosphatase 82 U/L (38-126); Anion Gap 7 mmol/L (4-12); Aspartate Amino Transferase 33 U/L (17-59); Bilirubin,Total 0.8 mg/dL (0.2-1.3); Blood Urea Nitrogen 18 mg/dL (9-20); Calcium 9.5 mg/dL (8.4-10.2); Carbon Dioxide 27 mmol/L (22-30); Chloride 105 mmol/L (98-107); Cholesterol 101 mg/dL (0-200); Estimated Glomerular Filt Rate > 60; Glucose 98 mg/dL (65-110); HDL Direct 32 mg/dL; Magnesium 2.1 mg/dL (1.6-2.3); Potassium 3.7 mmol/L (3.4-5.0); Sodium 139 mmol/L (137-145); Total Protein 7.3 g/dL (6.3-8.2); Triglycerides 138 mg/dL (<150); Uric Acid 3.9 mg/dL (3.5-8.5)
[2025-09-08 09:48] LABS: Thyroid Stimulating Hormone Reflex 0.169 uIU/mL (0.465-4.68)
[2025-09-08 09:54] LABS: Prostate Specific Antigen 0.9 ng/mL (< OR = 4.0)
[2025-09-08 10:30] LABS: Vitamin B12 717.0 pg/mL (239-931)
[2025-09-08 10:49] LABS: Free T4 Free Thyroxine Reflex 1.92 ng/dL (0.78-2.19)
[2025-09-08 12:24] LABS: Total Triiodothyronine (T3) 1.24 NG/ML (0.82-1.58)
== END 2025-09-08 07:13 | disposition home or self-care (01) ==
LOC: ANHLAB 07:13
PROVIDERS: PCP Nurse Practitioner Family; Visit Provider Nurse Practitioner Family
DX: K21.9 Gastro-esophageal reflux disease without esophagitis (principal); Z79.899 Other long term (current) drug therapy; E78.5 Hyperlipidemia, unspecified; E03.9 Hypothyroidism, unspecified; E55.9 Vitamin D deficiency, unspecified; Z12.5 Encounter for screening for malignant neoplasm of prostate; N40.1 Benign prostatic hyperplasia with lower urinary tract symptoms; R35.1 Nocturia; M1A.9XX0 Chronic gout, unspecified, without tophus (tophi); I10 Essential (primary) hypertension; I25.10 Atherosclerotic heart disease of native coronary artery without angina pectoris; E66.9 Obesity, unspecified; D49.2 Neoplasm of unspecified behavior of bone, soft tissue, and skin; R07.81 Pleurodynia; G47.9 Sleep disorder, unspecified
CPT/HCPCS: 36415; 80053; 80061; 82306; 82607; 82746; 83735; 84153; 84439; 84443; 84480; 84550; 85027; G0103

== ENCOUNTER 2025-10-12 10:08 | Outpatient (CLI) | payer MEDICARE, SELFPAY ==
[2025-10-12 12:08] LABS: Anion Gap 9 mmol/L (4-12); Blood Urea Nitrogen 17 mg/dL (9-20); Calcium 9.3 mg/dL (8.4-10.2); Carbon Dioxide 26 mmol/L (22-30); Chloride 105 mmol/L (98-107); Estimated Glomerular Filt Rate > 60; Glucose 103 mg/dL (65-110); Potassium 4.5 mmol/L (3.4-5.0); Sodium 140 mmol/L (137-145)
== END 2025-10-12 10:09 | disposition home or self-care (01) ==
PROVIDERS: PCP Nurse Practitioner Family; Visit Provider Internal Medicine Cardiovascular Disease
DX: E87.6 Hypokalemia (principal)
CPT/HCPCS: 36415; 80048

== ENCOUNTER 2025-10-14 13:51 | Emergency (ER) | payer MEDICARE, SELFPAY ==
[2025-10-14] VITALS (7 sets, daily range): BP systolic 136–155; BP diastolic 65–75; PULSE 60–77; RESP 16–18; TEMP 36.6–36.9; O2SAT 96–99
--- NOTE | ~2025-10-14 | US_ITS ---
EXAMINATION: US scrotum doppler, 10/14/2025 16:58 [facility] HISTORY: abscess Comparison: None Technique: Cagle-scale and color Doppler images were obtained of the testes with spectral analysis to document arterial and venous flow. Findings: Right Testicle:Right testicle 4.2 x 2.5 x 2.9 cm, normal parenchyma, normal flow. Right Epidiymis:Unremarkable. Normal flow. Left Testicle: Left testicle 4.6 x 1.9 x 2.5 cm, appendix testis noted with nonspecific cystic focus 2 x 2 by 2 mm, no increased flow. Left Epidiymis: Unremarkable. Normal flow. Hydrocele: Small simple appearing right hydrocele. Small simple appearing left hydrocele . . Varicocele: None Scrotum: Within the scrotum soft tissues left side there is a complex focus measuring 1.8 x 0.6 x 0.9 cm.. Impression: 1. Probable small scrotal abscess. Follow-up suggested to assess resolution. 2. Negative for torsion Reviewed, dictated and finalized at location P. [facility] Impression: 1. Probable small scrotal abscess. Follow-up suggested to assess resolution. 2. Negative for torsion
--- NOTE | 2025-10-14 16:46 | ED.MALEGU ---
HPI - Male Genitourinary General Chief complaint: Urogenital-Male <SHEELA Soto Last Filed: 10/14/25 16:51> Stated complaint: infection on scrotum <SHEELA Soto Last Filed: 10/14/25 16:51> Time Seen by Provider: 10/14/25 16:46 <SHEELA Soto Last Filed: 10/14/25 16:51> Focused HPI: Patient is a 79 y/o male who presents to the ED with c/o infected scrotum. Patient reports he was seen in the ED in August for an abscess of his scrotum. Required I&D at that time. Was put on oral abx and f/u with Urology 2 weeks later, healed well. Patient states he woke up this morning and noticed a knot/redness/slight swelling in his L sided scrotum. States this is how the other abscess began. States he can feel it when he walks. Denies significant pain. Denies difficulty urinating, fevers. GENERAL: Well-appearing, well-nourished, and in no acute distress. HEAD: Normocephalic, atraumatic. CHEST: Clear to auscultation. ?No respiratory distress. HEART: Regular rate and rhythm.? NEURO: ?Alert and oriented x3. Patient screened in triage and initial orders placed.? ?Additional care and disposition to be based upon?diagnostic testing and treatment. <SHEELA Soto Last Filed: 10/14/25 16:51> Source: patient and old records reviewed <SHEELA Soto Last Filed: 10/14/25 16:51> Mode of arrival: ambulatory <SHEELA Soto Last Filed: 10/14/25 16:51> Limitations: no limitations <SHEELA Soto Last Filed: 10/14/25 16:51> Related Data Home medications: Home Medications ?Medication ?Instructions ?Recorded ?Confirmed ?Last Taken ?Type ascorbate calcium (vitamin C) 500 500 mg PO DAILY 08/06/21 10/17/25 Unknown History mg tablet cholecalciferol (vitamin D3) 25 25 mcg PO DAILY 06/30/21 09/10/25 Unknown History mcg (1,000 unit) capsule omega-3 acid ethyl esters 1 gram 2 cap PO BID 06/30/21 09/10/25 Unknown History capsule (Lovaza) aspirin 81 mg tablet 81 mg PO DAILY 03/17/22 09/10/25 Unknown History <mUa Graham PA-C - Last Filed: 10/14/25 16:51> Allergies/Adverse reactions: Allergies Allergy/AdvReac Type Severity Reaction Status Date / Time No Known Allergies Allergy Verified 10/14/25 14:01 <Uma Graham PA-C - Last Filed: 10/14/25 16:51> Review of Systems Review of Systems: All systems reviewed & are unremarkable except as noted in HPI and below <Trace Leonard MD - Last Filed: 10/14/25 22:56> REPLACED BY [facility] Past Medical History Medical History: Medical History BMI 31.0-31.9,adult CAD (coronary artery disease) Basal cell carcinoma of left cheek Hypovitaminosis D Elevated TSH Dyslipidemia Hypertension GERD (gastroesophageal reflux disease) <Uma Graham PA-C - Last Filed: 10/14/25 16:51> Surgical History Surgical History: Surgical History No pertinent past surgical history <Uma Graham PA-C - Last Filed: 10/14/25 16:51> Family History Family History: Family History (Updated 09/10/25 @ 10:03 by Ginger Schreiber) Father Heart disease Mother Cancer <Uma Graham PA-C - Last Filed: 10/14/25 16:51> Social History Social History: Social History Smoking status: Never smoker Second hand tobacco smoke exposure: Yes Alcohol intake: current Alcohol use details: 1 beer per month Substance use: never Substance use type: does not use Lack of Transportation: No Lack of Food: Never True Current Housing: I Have Housing Concerned About Future Housing: No Difficulty Paying Gas/Electric Bills: No Difficulty Paying for Meds: No Currently Unemployed: No Education: Associate Degree Difficulty w/ Childcare or Family Care: No Living arrangements: with family Gender identity (if verbalized by the patient): Male Sexual Orientation (if Verbalized by the Patient): Straight or Heterosexual Spiritual care concerns: No <Uma Graham PA-C - Last Filed: 10/14/25 16:51> Exam Narrative: APPEARANCE: Well appearing, no pain, no distress, well-nourished. HEAD: normocephalic, atraumatic. EYES: PERRLA/EOMI, conjunctivae clear. NOSE: Normal no drainage EARS:TMS clear with good light reflex. THROAT: Pharynx clear, no exudate. NECK: Supple. No adenopathy, no masses. RESPIRATORY: Airway patent, respirations nonlabored. Clear to auscultation bilaterally, no rales, rhonchi, wheezing. CARDIOVASCULAR: Regular rate and rhythm without murmurs rubs or gallops. ABDOMINAL: Soft, nontender, nondistended, normal bowel sounds MUSCULOSKELETAL: Moves all extremities. Strength/ROM intact, No edema, No calf tenderness. NEURO: Alert. Cranial nerves II through XII intact. Good gait. Good coordination SKIN: Warm, dry. Normal Color Genital exam: Swelling to the perineum with no definitive abscess or erythema, no fluctuance <Trace Leonard MD - Last Filed: 10/14/25 22:56> Course Vital Signs Vital signs: Vital Signs Temperature 98.5 F 10/14/25 13:58 Pulse Rate 60 10/14/25 13:58 Respiratory Rate 18 10/14/25 13:58 Blood Pressure 151/65 H 10/14/25 13:58 Pulse Oximetry 99 10/14/25 13:58 Oxygen Delivery Room Air 10/14/25 13:58 Temperature 97.8 F 10/14/25 20:54 Pulse Rate 68 10/14/25 20:54 Respiratory Rate 18 10/14/25 20:54 Blood Pressure 138/74 10/14/25 20:54 Pulse Oximetry 98 10/14/25 20:54 Oxygen Delivery Room Air 10/14/25 13:58 <Uma Graham PA-C - Last Filed: 10/14/25 16:51> Vital Signs Temperature 98.5 F 10/14/25 13:58 Pulse Rate 60 10/14/25 13:58 Respiratory Rate 18 10/14/25 13:58 Blood Pressure 151/65 H 10/14/25 13:58 Pulse Oximetry 99 10/14/25 13:58 Oxygen Delivery Room Air 10/14/25 13:58 Temperature 97.8 F 10/14/25 20:54 Pulse Rate 68 10/14/25 20:54 Respiratory Rate 18 10/14/25 20:54 Blood Pressure 138/74 10/14/25 20:54 Pulse Oximetry 98 10/14/25 20:54 Oxygen Delivery Room Air 10/14/25 13:58 <Trace Leonard MD - Last Filed: 10/14/25 22:56> MDM - Male Genitourinary MDM Narrative Medical decision making narrative: MSE by GONZALO in triage. <Uma Graham PA-C - Last Filed: 10/14/25 16:51> MSE by GONZALO in triage. 71-year-old male present to the emergency department for evaluation for concern for possible abscess on his perineum. Patient is currently afebrile with no leukocytosis and a stable hemoglobin. Ultrasound did show possible small scrotal abscess. Patient has no erythema and no tender nodes to palpation. No fluctuance. Patient does have a small area of induration. Patient will be started on oral antibiotics. Patient was educated on the importance of close follow-up with his primary care physician and with Urology. All questions concerns were addressed. <Trace Leonard MD - Last Filed: 10/14/25 22:56> Differential Diagnosis Differential diagnosis: Likely other (Cellulitis, abscess, scar tissue, lymphadenopathy) <Trace Leonard MD - Last Filed: 10/14/25 22:56> Lab Data Result diagrams: 10/14/25 16:52 10/14/25 16:52 <Uma Graham PA-C - Last Filed: 10/14/25 16:51> Labs: Lab Results 10/14/25 10/14/25 Range/Units 16:52 18:05 WBC 8.8 (4.5-10.0) K/mm3 RBC 4.91 (4.6-6.20) M/mm3 Hgb 15.0 (14.0-18.0) g/dL Hct 42.9 (42.0-52.0) % MCV 87.4 (80-100) fl MCH 30.5 (26-34) pg MCHC 35.0 (32-36) g/dl RDW 13.2 (11.5-14.5) % Plt Count 146 L (150-375) k/mm3 MPV 9.4 (7.4-10.4) fl Immature Gran % (Auto) 0.3 (0-0.5) % Neut % (Auto) 72.3 (45.5-73.1) % Lymph % (Auto) 18.6 (18.3-44.2) % King % (Auto) 6.6 (2.6-8.5) % Eos % (Auto) 1.9 (0-4.4) % Baso % (Auto) 0.3 (0.2-1.2) % Lymph # (Auto) 1.63 (0.9-3.2) K/mm3 King # (Auto) 0.6 (0.1-0.6) K/mm3 Eos # (Auto) 0.2 (0-0.3) K/mm3 Baso # (Auto) 0.0 (0.0-0.1) K/mm3 Abs Immat Gran (auto) 0.03 (0.00-0.031) K/mm3 Absolute Neuts (auto) 6.3 (1.3-6.7) K/mm3 Absolute Nucleated RBC 0.000 (0.0-0.012) K/mm3 Nucleated RBC % 0.0 (0.0-0.2) % Sodium 139 (137-145) mmol/L Potassium 4.2 (3.4-5.0) mmol/L Chloride 104 (98-107) mmol/L Carbon Dioxide 24 (22-30) mmol/L Anion Gap 11 (4-12) mmol/L BUN 18 (9-20) mg/dL Creatinine 1.02 (0.7-1.3) mg/dL Estim Creat Clear Calc 61 ml/min Estimated GFR > 60 (59 - ) Glucose 98 (65-110) mg/dL Calcium 9.7 (8.4-10.2) mg/dL Total Bilirubin 0.8 (0.2-1.3) mg/dL AST 32 (17-59) U/L ALT 32 (6-50) U/L Alkaline Phosphatase 82 (38-126) U/L C-Reactive Protein < 0.5 (<1.0) mg/dL Total Protein 7.9 (6.3-8.2) g/dL Albumin 4.8 (3.5-5.1) g/dL Urine Color Yellow (Yellow) Urine Appearance Clear (Clear) Urine pH 5.0 (5.0-9.0) Ur Specific [place] 1.010 (1.001-1.035) Urine Protein Negative (Negative) mg/dL Urine Glucose (UA) Negative (Negative) mg/dL Urine Ketones Negative (Negative) mg/dL Ur Blood (Man) Negative (Negative) Urine Nitrate Negative (Negative) Urine Bilirubin Negative (Negative) Urine Urobilinogen 0.2 (<2.0) mg/dL Leukocyte Esterase Rfl Negative (Negative) KRANTHI/UL <Uma Graham PA-C - Last Filed: 10/14/25 16:51> Lab Results 10/14/25 10/14/25 Range/Units 16:52 18:05 WBC 8.8 (4.5-10.0) K/mm3 RBC 4.91 (4.6-6.20) M/mm3 Hgb 15.0 (14.0-18.0) g/dL Hct 42.9 (42.0-52.0) % MCV 87.4 (80-100) fl MCH 30.5 (26-34) pg MCHC 35.0 (32-36) g/dl RDW 13.2 (11.5-14.5) % Plt Count 146 L (150-375) k/mm3 MPV 9.4 (7.4-10.4) fl Immature Gran % (Auto) 0.3 (0-0.5) % Neut % (Auto) 72.3 (45.5-73.1) % Lymph % (Auto) 18.6 (18.3-44.2) % King % (Auto) 6.6 (2.6-8.5) % Eos % (Auto) 1.9 (0-4.4) % Baso % (Auto) 0.3 (0.2-1.2) % Lymph # (Auto) 1.63 (0.9-3.2) K/mm3 King # (Auto) 0.6 (0.1-0.6) K/mm3 Eos # (Auto) 0.2 (0-0.3) K/mm3 Baso # (Auto) 0.0 (0.0-0.1) K/mm3 Abs Immat Gran (auto) 0.03 (0.00-0.031) K/mm3 Absolute Neuts (auto) 6.3 (1.3-6.7) K/mm3 Absolute Nucleated RBC 0.000 (0.0-0.012) K/mm3 Nucleated RBC % 0.0 (0.0-0.2) % Sodium 139 (137-145) mmol/L Potassium 4.2 (3.4-5.0) mmol/L Chloride 104 (98-107) mmol/L Carbon Dioxide 24 (22-30) mmol/L Anion Gap 11 (4-12) mmol/L BUN 18 (9-20) mg/dL Creatinine 1.02 (0.7-1.3) mg/dL Estim Creat Clear Calc 61 ml/min Estimated GFR > 60 (59 - ) Glucose 98 (65-110) mg/dL Calcium 9.7 (8.4-10.2) mg/dL Total Bilirubin 0.8 (0.2-1.3) mg/dL AST 32 (17-59) U/L ALT 32 (6-50) U/L Alkaline Phosphatase 82 (38-126) U/L C-Reactive Protein < 0.5 (<1.0) mg/dL Total Protein 7.9 (6.3-8.2) g/dL Albumin 4.8 (3.5-5.1) g/dL Urine Color Yellow (Yellow) Urine Appearance Clear (Clear) Urine pH 5.0 (5.0-9.0) Ur Specific [place] 1.010 (1.001-1.035) Urine Protein Negative (Negative) mg/dL Urine Glucose (UA) Negative (Negative) mg/dL Urine Ketones Negative (Negative) mg/dL Ur Blood (Man) Negative (Negative) Urine Nitrate Negative (Negative) Urine Bilirubin Negative (Negative) Urine Urobilinogen 0.2 (<2.0) mg/dL Leukocyte Esterase Rfl Negative (Negative) KRANTHI/UL <Trace R. Horacio, MD - Last Filed: 10/14/25 22:56> Imaging Data Radiologist's impression: Impressions Scrotum Ultrasound 10/14/25 17:56 Impression: 1. Probable small scrotal abscess. Follow-up suggested to assess resolution. 2. Negative for torsion <Trace Leonard MD - Last Filed: 10/14/25 22:56> Discharge Plan Discharge Clinical Impression: Swelling of perineal tissue <Uma Graham PA-C - Last Filed: 10/14/25 16:51> Patient Disposition: Home <Uma Graham PA-C - Last Filed: 10/14/25 16:51> Condition: Stable <Uma Graham PA-C - Last Filed: 10/14/25 16:51> Instructions: Antibiotic Form <Uma Graham PA-C - Last Filed: 10/14/25 16:51> Additional Instructions: Antibiotic as directed until completed. Have close follow-up with your primary care physician and with Urology. <Uma Graham PA-C - Last Filed: 10/14/25 16:51> Patient Language: Sinhala <Uma Graham PA-C - Last Filed: 10/14/25 16:51> Prescriptions: New doxycycline hyclate 100 mg tablet 100 mg PO Q12H 10 Days Qty: 20 0RF No Action Adult Low Dose Aspirin 81 mg Tablet 81 mg PO DAILY rosuvastatin 20 mg tablet 20 mg PO DAILY Qty: 90 0RF carvedilol 12.5 mg tablet 12.5 mg PO Q12H Qty: 90 0RF Rx Instructions: must administer with a meal/food amlodipine 10 mg tablet 10 mg PO DAILY Qty: 90 0RF potassium chloride 20 mEq tablet extended release 20 meq PO DAILY Qty: 90 0RF multivitamin [Daily Multi-Vitamin] Tablet 1 tablet PO DAILY Qty: 90 0RF diclofenac sodium [Voltaren Arthritis Pain] 1 % gel 4 g topical QID Qty: 100 0RF ascorbate calcium (vitamin C) 500 mg tablet 500 mg PO DAILY cholecalciferol (vitamin D3) 25 mcg (1,000 unit) capsule 25 mcg PO DAILY omega-3 acid ethyl esters [Lovaza] 1 gram capsule 2 cap PO BID omeprazole 40 mg capsule,delayed release(DR/EC) See Rx Instructions .ROUTE .COMPLEX Qty: 90 1RF Dose Instruction: TAKE 1 CAPSULE BY MOUTH DAILY Rx Instructions: TAKE 1 CAPSULE BY MOUTH DAILY levothyroxine 137 mcg tablet See Rx Instructions .ROUTE .COMPLEX Qty: 90 1RF Dose Instruction: TAKE 1 TABLET BY MOUTH DAILY Rx Instructions: TAKE 1 TABLET BY MOUTH DAILY losartan 100 mg tablet See Rx Instructions .ROUTE .COMPLEX Qty: 90 1RF Dose Instruction: TAKE 1 TABLET BY MOUTH DAILY Rx Instructions: TAKE 1 TABLET BY MOUTH DAILY quetiapine 25 mg tablet See Rx Instructions .ROUTE .COMPLEX Qty: 90 0RF Dose Instruction: TAKE 1 TABLET BY MOUTH DAILY Rx Instructions: TAKE 1 TABLET BY MOUTH DAILY allopurinol 300 mg tablet See Rx Instructions .ROUTE .COMPLEX Qty: 90 1RF Dose Instruction: TAKE 1 TABLET BY MOUTH DAILY Rx Instructions: TAKE 1 TABLET BY MOUTH DAILY <Uma Graham PA-C - Last Filed: 10/14/25 16:51> Follow-up/Referrals: Raeann Mcgill APRN [Primary Care Provider, Internal Medicine] <Uma Graham PA-C - Last Filed: 10/14/25 16:51>
[2025-10-14 17:02] LABS: Hematocrit 42.9 % (42.0-52.0); Hemoglobin 15.0 g/dL (14.0-18.0); Immature Granulocyte Percent A 0.3 % (0-0.5); Lymphocytes Absolute Auto 1.63 K/mm3 (0.9-3.2); Mean Corpuscular HGB Conc 35.0 g/dl (32-36); Mean Corpuscular Hemoglobin 30.5 pg (26-34); Mean Corpuscular Volume 87.4 fl (80-100); Nucleated Red Blood Cells Absolute Auto 0.000 K/mm3 (0.0-0.012); Nucleated Red Blood Cells Perc 0.0 % (0.0-0.2); Platelet Count Result 146 k/mm3 (150-375); Red Blood Count 4.91 M/mm3 (4.6-6.20); White Blood Count 8.8 K/mm3 (4.5-10.0)
[2025-10-14 17:13] LABS: Alanine Aminotransferase 32 U/L (6-50); Albumin Level 4.8 g/dL (3.5-5.1); Alkaline Phosphatase 82 U/L (38-126); Anion Gap 11 mmol/L (4-12); Aspartate Amino Transferase 32 U/L (17-59); Bilirubin,Total 0.8 mg/dL (0.2-1.3); Blood Urea Nitrogen 18 mg/dL (9-20); CRP < 0.5 mg/dL (<1.0); Calcium 9.7 mg/dL (8.4-10.2); Carbon Dioxide 24 mmol/L (22-30); Chloride 104 mmol/L (98-107); Estimated CRCL calculation 61 ml/min; Estimated Glomerular Filt Rate > 60; Glucose 98 mg/dL (65-110); Potassium 4.2 mmol/L (3.4-5.0); Sodium 139 mmol/L (137-145); Total Protein 7.9 g/dL (6.3-8.2)
[2025-10-14 18:16] LABS: Add Urine Microscopic? NO; Appearance Urine Clear (Clear); Glucose Urine UA Negative (Negative); Leukocyte Esterase Ur Negative LEU/UL (Negative); Nitrate Urine Negative (Negative); Specific Grav Ur 1.010 (1.001-1.035)
[2025-10-14] MEDS: DOXYCYCLINE HYCLATE 100 MG TABLET PO (20:43)
== END 2025-10-14 20:55 | disposition home or self-care (01) ==
PROVIDERS: Physician Assistant; Emergency Provider Emergency Medicine; PCP Nurse Practitioner Family
DX: R22.2 Localized swelling, mass and lump, trunk (principal); I25.10 Atherosclerotic heart disease of native coronary artery without angina pectoris; I10 Essential (primary) hypertension; E78.5 Hyperlipidemia, unspecified; K21.9 Gastro-esophageal reflux disease without esophagitis; Z85.828 Personal history of other malignant neoplasm of skin; Z77.22 Contact with and (suspected) exposure to environmental tobacco smoke (acute) (chronic); Z79.899 Other long term (current) drug therapy
CPT/HCPCS: 36415; 76870; 80053; 81003; 85025; 86140; 93976; 99284; A9270

== ENCOUNTER 2025-11-10 09:18 | Outpatient (CLI) | payer MEDICARE, SELFPAY ==
[2025-11-10 09:50] LABS: Hematocrit 43.4 % (42.0-52.0); Hemoglobin 15.1 g/dL (14.0-18.0); Mean Corpuscular HGB Conc 34.8 g/dl (32-36); Mean Corpuscular Hemoglobin 30.9 pg (26-34); Mean Corpuscular Volume 88.9 fl (80-100); Platelet Count Result 154 k/mm3 (150-375); Red Blood Count 4.88 M/mm3 (4.6-6.20); White Blood Count 3.8 K/mm3 (4.5-10.0)
--- OUTSIDE RECORDS SUMMARY | 2025-11-10 10:15 | XMS_ITS | Data Portability ---
Author Organization [place] - [facility], Main Office Address [address] [place] [address] Assessment Encounter Date Assessment Date Assessment LastModified [...] difficulties or questions. 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 He did very well with previous treatment. I have advised him to continue with naproxen 500 mg b.i.d. with food and also to continue to work on his exercise program. I offered him formal therapy today he had declined he would rather do it on his own. At his request under sterile conditions I injected the patient's right shoulder subacromial space in the office with 4 cc of 0.5% bupivacaine and 20 mg of Kenalog. Patient tolerated the procedure well. I will see him back in 6 weeks if his symptoms continue to be significant we may do an MRI scan we will see how he does with time. He voiced understanding agrees above plan call for any further problems difficulties or questions. Not available 07/09/2025 11:51:31 Plan of Treatment Reminders Order Date Submit Date Provider Last Modified By Organization Details Last Modified Time Details Appointments None recorded. Lab None recorded. Referral None recorded. Procedures injection/a spiration joint/bursa (PROC) 2024 025 In-Office Order, Internal Use Only DO Not Attach Compendium DO Not Attach Compendium, Do Not Delete/merge, [id number] 11:07:52 injection/a spiration joint/bursa (PROC) 2023 024 [email or web address] In-Office Order, Internal Use Only DO Not Attach Compendium DO Not Attach Compendium, Do Not Delete/merge, [id number] 11:12:57 Surgeries None recorded. Imaging XR, shoulder 2023 024 [email or web address] [facility] [place], [address], [place], [address], 4 11:30:53 Medication Orders bupivacaine HCl 0.5 % (5 mg/mL) injection solution [address] [id number], [address], [place], [place], [id number], 5 13:00:14 Kenalog 10 mg/mL suspension for injection [address] [id number], [address], [place], [place], [id number], 5 13:00:14 bupivacaine HCl 0.5 % (5 mg/mL) injection solution [address] [id number], [address], [place], [place], [id number], 4 11:16:50 Kenalog 10 mg/mL suspension for injection [address] [facility][id number], [address], [place], [place], [id number], 4 11:16:50 naproxen 500 mg tablet [address] [id number], [address], [place], [place], [id number], 4 11:16:50 Patient TargetsNo targets recorded. Patient InstructionsNo instructions recorded. Reason for Referral None Reported. Results Created Date Observation Date Name Description Value Unit Range Abnormal Flag Note LastModifiedBy Organization Detail LastModifiedTime 10/01/20 24 XR, shoul indira No observ ation record ed. [email or web address] [facility] [place] [address], [place], [address], 10/01/2024 11:30:51 Result Notes None recorded. 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 Medical Equipment None Reported. [...] solution Take 20 mg by injection route. 2024 active Not Available Not Available Not Avai [...] injection Take 20 mg by injection route. 2024 active [facility]: 0003- 0494- 20 Not Available Not Available Not Available amlodipine 10 mg tablet TAKE 1 TABLET BY MOUTH DAILY active Not Available Not Available No t Available benzonatate 100 mg capsule TAKE 1 CAPSULE BY MOUTH EVERY 8 HOURS NEEDED active Not Available Not Available No t Available cephalexin 500 mg capsule TAKE 1 CAPSULE BY MOUTH THREE TIMES DAILY 10/01 completed Not Available Not Available Not Available oseltamivir 75 mg capsule TAKE 1 CAPSULE BY MOUTH EVERY 12 HOURS FOR 5 DAYS active Not Available Not Available No t Available allopurinol 300 mg tablet TAKE 1 TABLET BY MOUTH DAILY active Not Available Not Available No t Available mupirocin 2 % topical ointment APPLY TOPICALLY TO THE AFFECTED AREA TWICE DAILY active Not Available Not Available No t Available albuterol sulfate HFA 90 mcg/actuati on aerosol inhaler INHALE 2 PUFFS BY MOUTH EVERY 4 HOURS NEEDED active Not Available Not Available No t [...] and Address Organization Details Last Updated DateTime 07/09/2025 175.26 cm 31 kg/m2 45202.4 g GAVIN Pressley Rita [facility] 07/09/2025 11:05:56 Date Recorded Body height Body mass index (BMI) Body weight Provider Name and Address Organization Details Last Updated DateTime 10/01/2024 175.26 cm 31 kg/m2 66550.4 g GAVIN Pressley [employer] 10/01/2024 10:40:06 Date Recorded Body height Body mass index (BMI) Body weight Provider Name and Address Organization Details Last Updated DateTime 11/12/2024 175.26 cm 30.3 kg/m2 04767.44 g Rachael Martin CNA [employer] 11/12/2024 10:50:36 Social History Question Answer Notes LastModified by Organizat ion Details LastModified Time Tobacco Smoking Status Never Smoker GAVIN Pressley [place] [facility] [employer] 10/01/2024 10:41:20 What Was The Date Of Your Most Recent Tobacco Screening? 07/09/2025 Information not available 07/09/2025 Sex: Unknown Functional Status Question Answer Note LastModified by Organization D etails LastModified Time What is your level of alcohol consumption? None Information not available 10/01/2024 Mental Status None recorded. Family History Relationship Description Onset Age of this Age Resolved Age Notes LastModified by Organization Details LastModified Time Mother Hypertensive disorder Not available 2023 10:41:07 Medical History Condition Response SKIN PROBLEMS Y GOUT Y HEART DISEASE/HEART PROBLEMS Y Past Encounters Encounter ID Performer Location Encounter Start Date Encounter Closed Date Diagnosis/Indication Diagnosis SNOMED-CT Code Diagnosis ICD10 Code Diagnosis IMO Codes Diagnosis Note [id number] [facility] [place] [address] [place] [address] 10/01/2024 10:24:43 10/01/2024 11:18:25 Pain of right shoulder joint 1795115110 2573785 M25.511 Osteoarthr itis of right acromioclavicular joint 3660526693 427284 M19.011 Impingemen t syndrome of right shoulder region 3165349657 16201 M75.41 Nontraumat ic partial rupture of right rotator cuff 9695620909 827703 M75.178 [id number] MD [facility] [place] [address] [place] [address] 11/12/2024 10:48:11 11/12/2024 11:08:28 Nontraumatic partial rupture of right rotator cuff 9106242285 186776 M75.111 Osteoarthr itis of right acromioclavicular joint 2892741301 174967 M19.011 Pain of ri ght shoulder joint 1903755804 2643610 M25.511 Impingemen t syndrome of right shoulder region 8758106368 35889 M75.41 [id number] Olegario Ansari MD [facility] [place] [address] [place] [address] 07/09/2025 10:55:30 07/09/2025 12:02:03 Nontraumatic partial rupture of right rotator cuff 9846837567 076556 M75.111 Osteoarthr itis of right acromioclavicular joint 0168256325 466254 M19.011 Pain of ri ght shoulder joint 8813129570 2403836 M25.511 Impingemen t syndrome of right shoulder region 2373032330 46262 M75.41 Health Concerns Section Related Observation LastModified by Organization Detai ls LastModified Time None Recorded Concern Status LastModified by Organization Details LastModified Time None Recorded Advance Directives Directive None Recorded Payers Insurance Date Sequence Insurance Name Policy Number Policy Landeros Covered Member ID Landeros Member ID Guarantor Name 07/09/2025 [facility] Pedrito Donahue AAR AAR Pedrito Donahue 07/09/2025 1 [place] Pedrito Donahue [id number] Pedrito Donahue 07/09/2025 2 AARP (MEDICARE SUPPLEMENT) Pedrito Donahue [id number] Pedrito Donahue 07/09/2025 1 [facility] (MEDICARE REPLACEMENT/A DVANTAGE - HMO) [id number] Pedrito Donahue [id number] Pedrito Donahue Notes Date Note Type Note [...] previously. Occasionally he will take some Aleve [id number] he states he also does some light [...] detail today with the patient. PATRICK Allen [address] [place] [address], [place], [address], [place] - [facility] [employer] 10/01/2024 11:31:57 11/12/2024 text/html Patient returns for [...] for recheck. PATRICK Allen [address], [facility] [address], [place], [address], [facility] [employer] [facility] [employer] [facility] 11/12/2024 11:07:41 07/09/2025 text/html The patient returns complaining of right shoulder pain. I last saw him 8 months ago we did a shot of cortisone he had likely some degenerative wear in the rotator cuff he was having impingement type symptoms no weakness and no specific trauma or injury. He was painful in all planes having trouble raising his arm overhead fully or reaching behind his back. 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 He does have some subacromial spurring and AC joint arthrosis likely resulting in impingement. He did very well with shot of cortisone oral anti-inflammatory medication and therapy. He did a home exercise program. Only recently the last month or so his pain has flared up again. He thinks maybe he overdid it a bit but has no new symptoms just a recurrence of his old symptoms. He comes in today for further evaluation and treatment. Today he reports that his pain is about a 6 on a scale of 1-10. The patient has previous medical history is reviewed and with the patient today in detail he denies any significant changes. PATRICK Allen [address], [facility] [address], [place], [address], [employer] 07/09/2025 11:58:04
[2025-11-10 10:40] LABS: Thyroid Stimulating Hormone Reflex 1.160 uIU/mL (0.465-4.68)
== END 2025-11-10 09:19 | disposition home or self-care (01) ==
PROVIDERS: PCP Nurse Practitioner Family; Referring Provider Internal Medicine Cardiovascular Disease; Visit Provider Nurse Practitioner Family
DX: E03.9 Hypothyroidism, unspecified (principal); R79.89 Other specified abnormal findings of blood chemistry; D64.9 Anemia, unspecified
CPT/HCPCS: 36415; 84443; 85027